=== PATIENT | male | born 1960 | race Caucasian/White ===

== ENCOUNTER 2022-02-24 13:15 | Outpatient (CLI) | payer BC, SELFPAY ==
[2022-02-24 22:30] LABS: PSA Screen* 1.23 ng/mL (0.10-4.00)
== END 2022-02-24 13:16 | disposition home or self-care (01) ==
LOC: LKVREF 13:19
PROVIDERS: PCP Family Medicine; Visit Provider Family Medicine
DX: I10 Essential (primary) hypertension (principal); Z12.5 Encounter for screening for malignant neoplasm of prostate
CPT/HCPCS: 84153

== ENCOUNTER 2024-10-07 12:26 | Emergency (ER) | payer MEDICAID, SELFPAY ==
--- OUTSIDE RECORDS SUMMARY | 2024-10-07 12:29 | XMS_ITS | Clinical Summary ---
Author Organization [employer] [facility] Address [facility] [place] [address] Care Team Providers Care Clinical Faculty Name Role Phone Pcp, No Primary Care Provider Unavailabl e Allergies Active Allergy Reactions Criticality Noted Date Comments Pseudoephedrine-Dm *Unknown - Pt Doesn' t Remember 09/25/2008 Penicillins *Unknown - Childhood Rxn 09/16/2008 Phenylpropanolamine 09/25/2008 Sulfa (Sulfonamide Antibiotics) *Unknown - Childhood Rxn 09/16/2008 Medications Blood Pressure MonitorIndicati ons:Dizziness Home use 1 Device 08/11/2017 Active predniSONE (DELTASONE) 20 mg tabletIndicatio ns:Allergic reaction, initial encounter 3 po x 3 days then 2 po x 3 days then 1 po x 3 days 18 tablet 08/31/2018 Active hydrOXYzine HCl (ATARAX) 25 mg tabletIndicatio ns:Allergic reaction, initial encounter 1-2 po q 6-8 hours prn for rash or itching 40 tablet 08/31/2018 Active Active Problems Problem Noted Date Diagnosed Date Atypical chest pain 08/07/2017 Near syncope 08/07/2017 Other sleep apnea 08/07/2017 Paroxysmal tachycardia 08/07/2017 Immunizations Immunization Administration Dates Next Due Tdap 09/16/2008,08/02/2006 Family History Medical History Relation Name Comments Heart attack Brother Cancer Sister Relation Name Status Comments Brother Alive Father Mother Sister Social History Tobacco Use Types Packs/Day Years Used Date Smoking Tobacco: Never Smokeless Tobacco: Never Alcohol Use Standard Drinks/Week Comments Yes 0 (1 standard drink = 0.6 oz pur e alcohol) 2-1/2 liters rum per week Interpersonal Safety Answer Date Record ed Are you being hit, kicked, p ushed or yelled at (see row info)? 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 Gender Identity Not on file Sexual Orientation Not on file Obstetrics History Last Filed Vital Signs Vital Sign Reading Time Taken Comments Blood Pressure 144/69 01/16/2024 12:31 AM CDT Pulse 62 01/16/2024 12:31 AM CDT Temperature 36.7 C (98 F) 01/15/2024 9:45 PM CDT Respiratory Rate 21 01/16/2024 12:31 AM CDT Oxygen Saturation 97% 01/16/2024 12:31 AM CDT Inhaled Oxygen Concentration - - Weight 89.4 kg (197 lb) 01/15/2024 9:45 PM CDT Height 175.3 cm (5' 9) 01/15/2024 9:45 PM CDT Body Mass Index 29.09 01/15/2024 9:45 PM CDT Plan of Treatment Health Maintenance Due Date Last Done Comments Depression screening for age 12+ 1974 HIV for age 15-65 1977 BMI (ht and wt on same day) for age 18+ 02/25/1980 Hepatitis C screening for age 18-79 02/25/1980 Pneumococcal series for age 50+ (1 of 2 - PCV) 1981 Colonoscopy through age 75 2007 Zoster (shingles) series for age 50+ (1 of 2) 02/25/2012 Tetanus booster 09/16/2018 09/16/2008, 08/02/2006 Lipids for age 45-75 08/08/2022 08/08/2017 COVID-19 vaccine series ( season) 2024 06/19/2021, 10/30/2020, 10/09/2020 Influenza Vaccine (Season Ended) 2025 RSV vaccine for adults or pr egnancy (1 - 1-dose 75+ series) 2037 Tdap Completed 09/16/2008, 08/02/2006 Procedures Procedure Name Priority Date/Time Associated Diagnosis Comments LIPID PANEL Early AM 08/08/2017 6:34 AM DETECTOR CAR OPERATOR from Last 3 Months or Most Recently Relevant to Health Maintenance Results * (ABNORMAL) Lipid Panel (08/08/2017 6:34 AM DETECTOR CAR OPERATOR) CHOLESTEROL,TOTAL 214(H) 100 - 199 mg/dL 08/08/2017 7:09 AM DETECTOR CAR OPERATOR [facility] TRIGLYCERIDES 88 <150 mg/dL 08/08/2017 7:09 AM DETECTOR CAR OPERATOR [facility] HDL CHOLESTEROL 42 >40 mg/dL 8 7:09 AM DETECTOR CAR OPERATOR [facility] NON-HDL CHOLESTEROL 172(H) <145 mg/dl 08/08/2017 7:09 AM DETECTOR CAR OPERATOR [facility] CHOL/HDL RATIO 5.10(H) <4.50 08/08/2017 7:09 AM DETECTOR CAR OPERATOR [facility] LDL CHOLESTEROL 154(H) <=130 mg/dL 08/08/2017 7:09 AM DETECTOR CAR OPERATOR [facility] PROVIDER ORDERED STATUS RANDOM 08/08/2017 7:09 AM DETECTOR CAR OPERATOR [facility] Blood BLOOD SPECIMEN / Unknown Venipuncture / Unknown 08/08/2017 6:34 AM DETECTOR CAR OPERATOR 08/08/2017 6:45 AM DETECTOR CAR OPERATOR Justus Hamlin MD CHEMISTRY Final Result [facility] [address] [place] [address] from Last 3 Months or Most Recently Relevant to Health Maintenance Advance Directives * Full Code (Latest Code Status on File) Date Activated Date Inactivated Comments 08/07/2017 3:42 PM 08/08/2017 2:02 PM Question Answer Comments Code Status Discussion: Discussed * Full Code Date Activated Date Inactivated Comments 08/07/2017 3:39 PM 08/07/2017 3:42 PM Care Teams Clinical Faculty Relationship Specialty Start Date End Date Pcp, No . PCP - General 01/15/24
[2024-10-07 12:38] VITALS: BP 163/104; PULSE 83; RESP 18; TEMP 37.2; O2SAT 97; BMI 24.7
--- NOTE | 2024-10-07 13:22 | ED.GENADULT ---
HPI - General Adult General Date Seen: 10/07/24 Chief complaint: Nausea/Vomiting Stated complaint: haven't ate in 5 days needs to get testate, Time Seen by Provider: 10/07/24 13:21 History of Present Illness HPI narrative: 64-year-old male with a past medical history of hypertension, depression/anxiety, alcohol abuse, proximal tachycardia, BPPV Per medical record he saw his primary care provider, Dr. Tobin last December in 2023. For that visit he was in for med refills for his blood pressure and also was given a prescription for Lexapro to help manage his depression. According to those notes he has a history of depression and had been on Lexapro previously but stopped it due to sex side effects. He notes also wrote indicate that he was having trouble with alcohol abuse, had lost his job in his insurance, and that his girlfriend had kicked him out of the house so he was living independently. It sounds like he was making ends meet by were being self-employed but did not have medical insurance so did not want labs or any unnecessary testing last year. Patient reports that he has been struggling life. He has been living at home and has been trying to lives there as a ?rented to [employer]? option. He has been trying to work as a self-employed person. 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 However he recently lost that source of income because his line service technician was upset about how long it was taking him to make the devices. Therefore he has lost his income. He is worried that he is going to have to move out or cell or lose his home. He says he has an old dog has been urinating on the carpet and he is worried that he probably will be able to sell his house. He is not currently in [facility] but does not know where he is going to be living next. He knows that his income from social security will not cover his current red/mortgage He also has been drinking alcohol. He endorses drinking between half a L and 1 L of vodka every day. It sounds like this is a long-term habit. He drinks because drinking alcohol makes him feels happy and he knows that helps treat his depression. He makes him happy and he is not interested in treatment. He says before times lately over the past couple of months (he can be exactly sure what the time frame is) he has had periods where he gets shaky, nauseous and has vomiting. He notes that his current bout started 5 days ago, last Monday. When he woke up in the morning he made himself a hamburger for breakfast and even before he ate and he was feeling nauseous and upset stomach. He tried to eat a by the [employer] but had to put it down because he felt bloated, nauseous and had pain in his upper abdomen. After that he developed a lot of nausea and vomiting. He describes several days of repetitive emesis which was brownish and sometimes blood tinged. He was vomiting about every hour and not able take any liquid or solid. He was feeling weak and shaky. He did not come to the doctor because he could not get anyone from his friends or family to give him a ride. He refused to let himself called 911 because he was worried about the bill. Beginning yesterday on Monday he started to feel a bit better and is no longer quite as shaky. He still nauseous but has not vomited since yesterday morning. He has been able to take a few sips of water yesterday and today but not eat much solid food. He did make urine this morning has not had any trouble with urination. Denies black or bloody stools. No definite fever but he has been shaky and sweaty. He apparently talked to his girlfriend or possibly did an Internet search and discovered that possibly Lexapro can cause vomiting and shakiness so he is determined that he needs to stop taking Lexapro. He had gone several days without taking his Lexapro or his blood pressure med because of the vomiting but did take it for the past couple of days. He decided today that he is going to wean off. He does not regularly use any other drugs of abuse. Related Data Previous Rx's ?Medication ?Instructions ?Recorded amlodipine 10 mg tablet 10 mg PO .pm #90 tabs 12/28/23 metoprolol succinate 100 mg 100 mg PO DAILY #90 tabs 12/28/23 tablet,extended release 24 hr escitalopram oxalate 10 mg tablet 10 mg PO QDAY #90 tabs 08/01/24 (Lexapro) Allergies Allergy/AdvReac Type Severity Reaction Status Date / Time brompheniramine Allergy Unknown Verified 10/07/24 12:47 Penicillins Allergy Unknown Verified 10/07/24 12:47 phenylpropanolamine Allergy Unknown Verified 10/07/24 12:47 Sulfa (Sulfonamide Allergy Unknown Verified 10/07/24 12:47 Antibiotics) [facility] Medical History (Updated 10/07/24 @ 16:53 by Andrew Nettles MD) Left knee pain ?M25.562 - Pain in left knee (ICD-10) History of echocardiography ?Z92.89 - Personal history of other medical treatment (ICD-10) History of carpal tunnel syndrome ?Z86.69 - Personal history of other diseases of the nervous system and sense organs (ICD-10) Surgical History (Updated 02/23/22 @ 10:26 by Shu Singer) History of nasal septoplasty ?Z98.890 - Other specified postprocedural states (ICD-10) History of hernia repair ?Z98.890 - Other specified postprocedural states (ICD-10) ?Z87.19 - Personal history of other diseases of the digestive system (ICD-10) Family History (Updated 02/23/22 @ 10:28 by Shu Singer) Sister Cancer Brother Myocardial infarction Social History Smoking Status: Never smoker How often do you have a drink containing alcohol: 4 or more times a week How many standard drinks containing alcohol do you have on a typical day: 1 or 2 AUDIT-C Alcohol total score: 4 Non-prescribed substance use: denies use Exam Narrative: Exam Narrative: Constitutional: Appears well-developed and well-nourished. Alert. Conversant and polite but very vague historian in tangential. Says that he has a distant history of TBI and just has generally poor memory.. Non toxic. HENT: Head: Atraumatic. Nose: Nose normal. Mouth/Throat: Oral mucosa is clear but perhaps somewhat dry, not desiccated or cracked. no trismus. Pharynx normal. Tonsils symmetric. No tonsillar enlargement, erythema, or exudate. Eyes: Conjunctivae normal. EOM normal. Pupils equal, round, and reactive to light. No scleral icterus. Neck: Normal range of motion. Neck supple. No tracheal deviation present. Cardiovascular: Normal rate, regular rhythm. No gallop. No friction rub. No murmur heard. Symmetric radial artery pulses Pulmonary/Chest: Effort normal. No stridor. No respiratory distress. No wheezes. No rales. No rhonchi . No tenderness. Abdominal: Soft. Bowel sounds normal. No distension. No mass. Epigastric tenderness. No rebound. No guarding. Musculoskeletal: RUE: Normal range of motion. No tenderness. No deformity LUE: Normal range of motion. No tenderness. No deformity RLE: Normal range of motion. No edema. No tenderness. No deformity LLE: Normal range of motion. No edema. No tenderness. No deformity Neurological: Alert and oriented to person, place, and time. Normal strength. CN II-VII intact. No sensory deficit. GCS eye subscore is 4. GCS verbal subscore is 5. GCS motor subscore is 6. Normal coordination Skin: Skin is warm and dry. No rash noted. No pallor. Normal capillary refill. Psychiatric: Normal mood. Normal affect. Polite. Is a very vague historian. Has difficulty describing his chronology of symptoms. The best history I can provide is as per the HPI. He also adds that about a year ago he was at a alliance party with some girls who apparently were car dealership from the [employer]. They made him take gummies and he was apparently seem severely impaired from them for about 5 hours. He does not regularly use gummies. He does drink about 0.5-1 L of vodka per . He has been taking Lexapro for depression. Const: Vital Signs, click to edit/add: Vital Signs - 24 hr 10/07/24 12:38 10/07/24 14:51 Temperature 98.9 F 98.1 F Pulse Rate [Right Pulse Oximeter] 83 71 Respiratory Rate 18 18 Blood Pressure [Ri ght Forearm] 163/104 H 142/105 H Pulse Oximetry 97 97 Oxygen Delivery Me thod Room Air Room Air Course Course ED Course: Recheck-patient feeling better after IV fluids. He is eager for discharge home. Awaiting on repeat venous lactic acid to make sure it is normalizing. Recheck-venous lactic has normalized. Patient is here for discharge home. He is to go home and feed his dog. Vital Signs Vital signs: Initial Vital Signs Temperature 98.9 F 10/07/24 12:38 Temperature Source Temporal Artery Scan 10/07/24 12:38 Pulse Rate 83 10/07/24 12:38 Pulse Rhythm Regular 10/07/24 12:38 Pulse Strength 3+ Normal 10/07/24 12:38 Respiratory Rate 18 10/07/24 12:38 Blood Pressure 163/104 H 10/07/24 12:38 Blood Pressure Mean 123 H 10/07/24 12:38 Blood Pressure Position Sitting 10/07/24 12:38 Pulse Oximetry 97 10/07/24 12:38 Oxygen Delivery Method Room Air 10/07/24 12:38 Vital Signs Temperature 98.9 F 10/07/24 12:38 Pulse Rate 83 10/07/24 12:38 Respiratory Rate 18 10/07/24 12:38 Blood Pressure 163/104 H 10/07/24 12:38 Pulse Oximetry 97 10/07/24 12:38 Oxygen Delivery Method Room Air 10/07/24 12:38 Temperature 98.1 F 10/07/24 14:51 Pulse Rate 71 10/07/24 14:51 Respiratory Rate 18 10/07/24 14:51 Blood Pressure 142/105 H 10/07/24 14:51 Pulse Oximetry 97 10/07/24 14:51 Oxygen Delivery Method Room Air 10/07/24 14:51 Medications Administered Medications: Discontinued Medications Generic Name Dose Route Start Last Admin Trade Name Freq PRN Reason Stop Dose Admin Folic Acid 1 mg 10/07/24 13:53 10/07/24 14:41 Folic Acid 1 Mg Tablet PO 10/07/24 13:54 1 mg ONCE ONE Administration Sodium Chloride 1,000 mls @ 1,000 mls/hr 10/07/24 14:00 10/07/24 15:53 0.9 % Sodium Chloride 1000 Ml IV 10/07/24 14:59 Infused .Q1H [facility] Infusion Ondansetron HCl 4 mg 10/07/24 13:53 10/07/24 14:42 Ondansetron 2 Mg/Ml Inj IVP 10/07/24 13:54 4 mg ONCE ONE Administration Pantoprazole Sodium 40 mg 10/07/24 13:53 10/07/24 14:44 Pantoprazole Sodium 40 Mg Inj IVP 10/07/24 13:54 40 mg ONCE ONE Administration Thiamine HCl 100 mg 10/07/24 13:53 10/07/24 14:41 Thiamine 100 Mg Tablet PO 05/05/25 13:54 100 mg ONCE ONE Administration Medical Decision Making [facility] Narrative Medical decision making narrative: 64-year-old gentleman with a complex presentation to the ER. Says for the past 5 or 6 days he has had trouble with nausea, shakiness, almost no oral intake, and also vomiting up some brownish bloody material. Initial concern is for possible upper GI bleed. He is hemodynamically stable. He has not had any vomiting for the past couple of days. Hemoglobin is surprisingly normal which is reassuring. Would consider possible alcoholic gastritis or peptic ulcer disease as a cause. Patient is reluctant to start any new medications and actually to himself is blaming his symptoms on his Lexapro. Therefore will hold off on PPI for now. However I do think the patient needs close outpatient follow-up and if symptoms recur or persist may need endoscopy. Concern here is for possible also alcohol withdrawal or other alcohol-related complication. He is hemodynamically stable, not tachycardic, tremulous, or shaky here in the ER today rib but reports that he was quite shaky for the past several days. It sounds like while he was vomiting he was not able to drink, but as he started to feel better yesterday he has been drinking. He confirms that he was having alcohol last night. Alcohol level is detectable at 0.02 this morning. At this point I think he is not actively in withdrawal but I suspect he possibly had been in withdrawal several days ago causing his vomiting and shakiness. Discussed alcohol use disorder with the patient. He is adamantly not interested in treatment and does not want resources. He says that he has been able to be sober for periods of 1 year and 5 years in the past and that he will stop drinking on his own. He is invited to return to the ER if he changes his mind or needs more help. Laboratory workup does show mildly abnormal bilirubin and transaminases. I suspect these reflect recent alcohol consumption and probable alcoholic hepatitis. Advised that he needs to stop drinking alcohol due to risk of progressive liver damage. Patient verbalizes understanding. Fortunately lab such as potassium, kidney function, magnesium look good today. Patient is also very concerned that the Lexapro is what has been causing his vomiting and shakiness. He wants to stop taking it. I advised him that I am more suspicious about alcohol use disorder as a cause for symptoms. However the patient is adamant that he wants to stop the Lexapro. I have concern that this probably could lead to deterioration of his mental health. However he says he will wean himself off bike taking half a Lexapro once daily for a week and then stop altogether. Advised to follow-up with his PCP, at the [facility] before he makes any med changes. Discussed the potential for worsening the patient's condition and precautions for return to the ER. He verbalizes understanding but is very eager to discharge. Instymeds prescription for Zofran that he can use as needed. We considered possible discharge prescription for benzos to help with alcohol withdrawal but since he is really not ready to go through cessation or treatment, I think the risk of adding benzos to the picture here would outweigh the benefit Lab Data Labs: Lab Results 10/07/24 10/07/24 10/07/24 Range/Units 14:24 15:49 15:50 WBC 7.94 (4.50-11.00) K/uL RBC 4.60 (4.30-5.90) m/uL Hgb 16.1 (13.5-17.5) gm/dL Hct 44.5 (37.0-53.0) % MCV 97 (80-100) fL MCH 35 H (26-34) pg MCHC 36 (32-36) gm/dL RDW Coeff of Camila 12.1 (11.5-15.5) % Plt Count 213 (140-440) K/uL Neut % (Auto) Not Reportable Lymph % (Auto) Not Reportable [place] % (Auto) Not Reportable Eos % (Auto) Not Reportable Baso % (Auto) Not Reportable Neut # (Auto) Not Reportable Lymph # (Auto) Not Reportable [place] # (Auto) Not Reportable Eos # (Auto) Not Reportable Baso # (Auto) Not Reportable INR 0.96 (0.91-1.10) Sodium 137 (135-149) mmol/L Potassium 4.3 (3.6-5.1) mmol/L Chloride 101 (96-114) mmol/L Carbon Dioxide 24 (20-32) mmol/L Anion Gap 12 (7-15) mEq/L BUN 26 (7-30) mg/dL Creatinine 0.9 (0.5-1.5) mg/dL Estimated Creat Clear 76.59 Estimated GFR 97 ml/min Glucose 110 (60-115) mg/dL Lactate 2.8 H 1.5 (0.5-1.9) mmol/L Calcium 9.7 (8.4-10.6) mg/dL Magnesium 2.4 (1.5-2.6) mg/dL Total Bilirubin 1.9 H (0.1-1.5) mg/dL AST 67 H (12-35) U/L ALT 50 (4-50) U/L Alkaline Phosphatase 53 (40-150) U/L Troponin I < 0.01 (0.01-0.04) ng/mL Total Protein 7.9 (6.0-8.3) g/dL Albumin 4.9 (3.3-5.0) g/dL Lipase 79 (23-300) U/L Urine Color Dark yellow (Yellow) Urine Appearance Clear (Clear) Urine pH 6.0 (5.0-8.5) Ur Specific [place] 1.015 (1.000-1.030) Urine Protein 1+ A (Negative) Urine Glucose (UA) Negative (Negative) Urine Ketones 1+ A (Negative) Urine Blood Negative (Negative) Urine Nitrite Negative (Negative) Urine Bilirubin Negative (Negative) Urine Urobilinogen 1.0 (0.2-1.0) Ur Leukocyte Esterase Negative (Negative) Urine RBC 0-2 (0-2) Urine WBC 0-2 (0-5) Ur Squamous Epith Cells None (None-Few) Urine Bacteria None (None) Ethyl Alcohol 0.02 (0.01-0.03) % ECG Data Attestation: I personally reviewed and interpreted this ECG as follows: Interpretation: Normal sinus rhythm Rate: 79 NH: 184 QRS axis: Normal axis ST segment/T wave: No ST segment elevation or depression. QTc: 465 Discharge Plan Discharge Clinical Impression: Vomiting, Alcohol abuse, Abnormal LFTs Patient Disposition: Home, Self-Care Condition: Stable Instructions: Acute Nausea and Vomiting (DC), Alcohol Use Disorder (ED) Additional Instructions: As we discussed, you can use the Zofran as needed for vomiting. Please follow-up with your regular doctor for recheck within 1 week. Ask your doctor to recheck your blood pressure and Dr. Tobin can also help you adjust her Lexapro dose. Return to the ER right away if you have more episodes of shakiness, vomiting, bloody fluid in your vomit, bloody or black stools, abdominal pain, fever, or any concerns. Activity Level: Don't flex hip more than 90 degrees Prescriptions: No Action metoprolol succinate 100 mg tablet extended release 24 hr 100 mg PO DAILY Qty: 90 1RF amlodipine 10 mg tablet 10 mg PO .pm Qty: 90 1RF escitalopram oxalate [Lexapro] 10 mg tablet 10 mg PO QDAY Qty: 90 1RF Follow Up/Referrals: Edmond Tobin MD [Primary Care Provider] - Stand Alone Forms: [employer] Info Instructions
--- OUTSIDE RECORDS SUMMARY | 2024-10-07 14:09 | XMS_ITS | Clinical Summary ---
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 Gender Identity Not on file Sexual Orientation [...] LIPID PANEL Early AM 08/08/2017 6:34 AM PULPWOOD CUTTER from Last 3 Months or Most Recently Relevant to Health Maintenance Results * (ABNORMAL) Lipid Panel (08/08/2017 6:34 AM PULPWOOD CUTTER) CHOLESTEROL,TOTAL 214(H) 100 - 199 mg/dL 08/08/2017 7:09 AM PULPWOOD CUTTER [facility] TRIGLYCERIDES 88 <150 mg/dL 08/08/2017 7:09 AM PULPWOOD CUTTER [facility] HDL CHOLESTEROL 42 >40 mg/dL 8 7:09 AM PULPWOOD CUTTER [facility] NON-HDL CHOLESTEROL 172(H) <145 mg/dl 08/08/2017 7:09 AM PULPWOOD CUTTER [facility] CHOL/HDL RATIO 5.10(H) <4.50 08/08/2017 7:09 AM PULPWOOD CUTTER [facility] LDL CHOLESTEROL 154(H) <=130 mg/dL 08/08/2017 7:09 AM PULPWOOD CUTTER [facility] PROVIDER ORDERED STATUS RANDOM 08/08/2017 7:09 AM PULPWOOD CUTTER [facility] Blood BLOOD SPECIMEN / Unknown Venipuncture / Unknown 08/08/2017 6:34 AM PULPWOOD CUTTER 08/08/2017 6:45 AM PULPWOOD CUTTER Justus Hamlin MD CHEMISTRY Final Result [facility] [address] [place] [address] from Last 3 Months or Most Recently Relevant to Health Maintenance Advance Directives * Full Code (Latest Code Status on File) Date Activated Date Inactivated Comments 08/07/2017 3:42 PM 08/08/2017 2:02 PM Question Answer Comments Code Status Discussion: Discussed * Full Code Date Activated Date Inactivated Comments 08/07/2017 3:39 PM 08/07/2017 3:42 PM Care Teams Lab Nurse Relationship Specialty Start Date End Date Pcp, No . PCP - General 01/15/24
[2024-10-07 14:35] LABS: Lactate* 2.8 mmol/L (0.5-1.9)
[2024-10-07 14:40] LABS: Hematocrit* 44.5 % (37.0-53.0); Hemoglobin* 16.1 gm/dL (13.5-17.5); Mean Corpuscular HGB Conc 36 gm/dL (32-36); Mean Corpuscular Hemoglobin 35 pg (26-34); Mean Corpuscular Volume 97 fL (80-100); Platelet Count* 213 K/uL (140-440); RDW Coefficient of Variation % 12.1 % (11.5-15.5); White Blood Count* 7.94 K/uL (4.50-11.00)
[2024-10-07] MEDS: 0.9 % SODIUM CHLORIDE 1000 ml 1,000 ML IV (14:40)
[2024-10-07] MEDS: THIAMINE 100 MG TABLET PO (14:41)
[2024-10-07] MEDS: FOLIC ACID 1 MG TABLET PO (14:41)
[2024-10-07] MEDS: ONDANSETRON 2 MG/ML inj 4 MG IVP (14:42)
[2024-10-07] MEDS: PANTOPRAZOLE SODIUM 40 MG INJ IVP (14:44)
[2024-10-07 14:49] LABS: Slide Review Reflex No
[2024-10-07 14:51] VITALS: BP 142/105; PULSE 71; RESP 18; TEMP 36.7; O2SAT 97
[2024-10-07 14:52] LABS: Albumin* 4.9 g/dL (3.3-5.0); Chloride* 101 mmol/L (96-114); Sodium* 137 mmol/L (135-149)
[2024-10-07 14:53] LABS: INR 0.96 (0.91-1.10); Potassium* 4.3 mmol/L (3.6-5.1); Prothrombin Time 13.6 Seconds
[2024-10-07 14:55] LABS: Alanine Aminotransferase* 50 U/L (4-50); Alkaline Phosphatase* 53 U/L (40-150); Anion Gap 12 mEq/L (7-15); Aspartate Amino Transferase* 67 U/L (12-35); Bilirubin Total* 1.9 mg/dL (0.1-1.5); Blood Urea Nitrogen* 26 mg/dL (7-30); Calcium* 9.7 mg/dL (8.4-10.6); Carbon Dioxide* 24 mmol/L (20-32); Creatinine* 0.9 mg/dL (0.5-1.5); Est. Creatinine Clearance* 76.59; Estimated Glomerular Filt Rate 97 ml/min; Glucose* 110 mg/dL (60-115); Lipase* 79 U/L (23-300); Total Protein* 7.9 g/dL (6.0-8.3)
[2024-10-07 14:56] LABS: Ethanol* 0.02 % (0.01-0.03); Magnesium* 2.4 mg/dL (1.5-2.6)
[2024-10-07 15:20] LABS: Troponin I* < 0.01 ng/mL (0.01-0.04)
[2024-10-07 15:52] LABS: Lactate* 1.5 mmol/L (0.5-1.9)
[2024-10-07 16:12] LABS: Appearance Urine Clear (Clear); Bilirubin Urine Negative (Negative); Blood Urine Negative (Negative); Color Urine Dark yellow (Yellow); Glucose Urine Negative (Negative); Ketones Urine 1+ (Negative); Leukocyte Esterase Urine Negative (Negative); Nitrite Urine Negative (Negative); Protein Urine 1+ (Negative); Specific Gravity Urine 1.015 (1.000-1.030)
[2024-10-07 16:23] LABS: RBC Urine 0-2 (0-2); WBC Urine 0-2 (0-5)
== END 2024-10-07 17:00 | disposition home or self-care (01) ==
PROVIDERS: Emergency Provider Emergency Medicine; PCP Family Medicine
DX: F10.10 Alcohol abuse, uncomplicated (principal); R94.5 Abnormal results of liver function studies
CPT/HCPCS: 36415; 80053; 81001; 82077; 83605; 83690; 83735; 84484; 85025; 85610; 93005; 96374; 96375; 99283; 99284; A9270; J2405; J2470; J7030